=== PATIENT | male | born 1935 | race Caucasian/White ===

== ENCOUNTER 2019-10-17 08:20 | Day surgery (SDC) | payer MEDICARE, OTHER ==
[2019-10-11 14:50] LABS: Basophils # (auto) 0 10 ^3/uL (0-0.2); Basophils % (auto) 0.8 % (0.0-2.0); Eosinophils # (auto) 0.2 10 ^3/uL (0-0.8); Eosinophils % (auto) 3.3 % (0.0-7.0); Hematocrit 44.6 % (41.0-53.0); Hemoglobin 14.6 g/dL (13.5-17.5); Lymphocytes % (auto) 33.2 % (10.0-50.0); Mean Corpuscular Hemoglobin 30.5 pg (28.0-32.0); Mean Corpuscular Hgb Conc. 32.6 g/dL (32.0-36.0); Mean Corpuscular Volume 93.6 fL (80.0-100.0); Monocytes # (auto) 0.5 10 ^3/uL (0-1.3); Monocytes % (auto) 7.8 % (0.0-12.0); Neutrophils # (auto) 3.3 10 ^3/uL (1.6-8.6); Neutrophils % (auto) 54.9 % (37.0-80.0); Nucleated Red Blood Cells % 0.1 %; Platelet Count (auto) 227 10^3/uL (140-450); Red Blood Cells 4.76 10^6/uL (4.5-5.90); Red Cell Distribution Width 13.4 % (11.8-14.3)
[2019-10-11 15:07] LABS: INR 1.02 (0.9-1.15); Partial Thromboplastin Time 23.4 sec (23.0-31.2)
[2019-10-11 15:12] LABS: Albumin 3.9 g/dL (3.4-5.0); Calcium 9.8 mg/dL (8.5-10.1); Potassium 4.5 mmol/L (3.5-5.1)
[2019-10-11 15:13] LABS: Urine Bacteria FEW /hpf (None Seen); Urine Blood Negative /uL (Negative); Urine Budding Yeast FEW /hpf (None Seen); Urine Mucus FEW (None Seen); Urine Specific Gravity 1.023 (1.001-1.035); Urine WBC 43 /hpf (0 - 3)
[2019-10-11 15:16] LABS: BUN/Creatinine Ratio 10.9; Bilirubin, Total 0.4 mg/dL (0.2-1.0); Total Protein 7.3 g/dL (6.4-8.2)
[~2019-10-17] VITALS: Ht 175.3 cm; Wt 90.7 kg
[~2019-10-17 08:20] MED LIST: ALOG2.5T PO; ASPI-543 PO; BENA10TA9 PO; CHOL100055 PO; GLIP10TA9 PO; KETO0.4S RIGHTEYE; LATA0.0019 EACHEYE; METO-158 PO; PRED1SUS4 RIGHTEYE; SIMV-13 PO; TAMS0.4C36 PO
[2019-10-17] MEDS ORDERED: ROPIVACAINE 0.5% (5MG/ML) 20ML AMPULE IJ ONE (11:02)
[2019-10-17] MEDS ORDERED: ceFAZolin 1GM/50ML 50 ML IV ONE (11:44)
[2019-10-17] MEDS ORDERED: ePHEDrine SULFATE 50 MG/ML AMP IV PRN (13:00)
[2019-10-17] MEDS ORDERED: ONDANSETRON HCL 4 MG/2 ML VIAL IV PRN (13:00)
[2019-10-17] MEDS ORDERED: HYDROmorphone HCL 2 MG/ML VL IV PRN (13:00)
[2019-10-17] MEDS ORDERED: MIDAZOLAM HCL 1MG/1ML-2 ML VIAL IV PRN (13:00)
[2019-10-17] MEDS ORDERED: LABETALOL HCL 5 MG/ML 4ML SYRINGE IV PRN (13:00)
[2019-10-17] MEDS ORDERED: MORPHINE SULFATE 4 MG/ML SYR/VIAL IV PRN (13:00)
[2019-10-17] MEDS ORDERED: ACCU-CHEK COMFORT CURVE STRIP VI ONE (13:00)
[2019-10-17] MEDS ORDERED: fentaNYL CITRATE 100 MCG/2 ML VL ONE (13:06)
[2019-10-17] MEDS ORDERED: MIDAZOLAM HCL 1MG/1ML-2 ML VIAL ONE (13:06)
[2019-10-17] MEDS ORDERED: PROPOFOL 10 MG/ML 20 ML IV ONE (13:19)
[2019-10-17] MEDS ORDERED: DexAMETHasone SOD PHOS 10MG/1ML VIAL INJ ONE (13:19)
[2019-10-17 16:05] VITALS: BP 123/67
== END 2019-10-17 14:50 | disposition home or self-care (01) ==
LOC: SUR 08:20
PROVIDERS: ATTEND Podiatrist Foot & Ankle Surgery
DX: M89.9 Disorder of bone, unspecified (principal); M20.42 Other hammer toe(s) (acquired), left foot; L84 Corns and callosities; M20.5X2 Other deformities of toe(s) (acquired), left foot; I10 Essential (primary) hypertension; E11.9 Type 2 diabetes mellitus without complications; I25.10 Atherosclerotic heart disease of native coronary artery without angina pectoris; Z87.891 Personal history of nicotine dependence; Z11.59 Encounter for screening for other viral diseases
CPT/HCPCS: 28285; 36415; 80053; 81001; 82962; 85025; 85610; 85730; J0690; J1100; J2250; J2704; J2795; J3010; L3260; U0003